=== PATIENT | female | born 1965 | race African-American/Black ===

== ENCOUNTER 2022-06-15 15:53 | Observation (INO) ==
[2022-06-15] MEDS ORDERED: Ondansetron 4 mg VIAL 2 MG/ML 2 ml VIAL ONE (16:06)
[2022-06-15] MEDS ORDERED: Ondansetron 4 mg VIAL 2 MG/ML 2 ml VIAL IV ONE (16:07)
[2022-06-15 16:13] LABS: Hematocrit 45 % (35-47); Hemoglobin 14.9 g/dL (12.0-16.0); Mean Corpuscular HGB Conc 33 g/dL (31-36); Mean Corpuscular Hemoglobin 29 pg (27-31); Mean Corpuscular Volume 87 fL (80-97); Mean Platelet Volume 8.3 fL (7.4-10.4); Platelet Count 326 10^3/uL (150-450); Red Blood Count 5.16 10^6 /uL (3.70-4.87); Red Cell Distribution Width 16 % (10-15); White Blood Count 10.2 10^3/uL (3.5-10.8)
[2022-06-15] MEDS ORDERED: Iodixanol (CONTRAST) 320 MG/ML 100 ML SDV IV ONE (16:17)
[2022-06-15 16:28] LABS: ABS Eosinophils 0.2 10^3/ul (0-0.6); ABS Monocytes 0.7 10^3/ul (0-0.8); ABS Neutrophils 5.2 10^3/ul (1.5-7.7); Eosinophil % 2.3 %; Lymphocyte % 39.6 %; Nucleated Red Blood Cells % 0.1
[2022-06-15 16:37] LABS: INR 0.97 (0.88-1.18)
[2022-06-15 16:38] LABS: Activated Partial Thrombo Time 35.9 seconds (26.0-38.0)
[2022-06-15 16:47] LABS: Albumin 4.3 g/dL (3.2-5.2); Albumin/Globulin Ratio 1.3 (1-3); Calcium 9.8 mg/dL (8.6-10.3); Creatinine, Serum 0.83 mg/dL (0.51-0.95); Globulin 3.2 g/dL (2-4); Potassium 3.8 mmol/L (3.5-5.0); Total Bilirubin 0.3 mg/dL (0.2-1.0); Total Protein 7.5 g/dL (6.4-8.9); eGFR CKD-EPI 81.7 (>60)
[2022-06-15 19:15] LABS: Urine Bacteria Absent (Absent); Urine Red Blood Cell Trace(0-2/hpf) (Absent); Urine Squamous Epithelial Cell Present (Absent); Urine White Blood Cell Trace(0-5/hpf) (Absent)
[2022-06-15 19:23] LABS: Urine Appearance Clear; Urine Bilirubin Negative (Negative); Urine Blood Negative (Negative); Urine Color Straw; Urine Glucose Negative (Negative); Urine Ketones Negative (Negative); Urine Nitrite Negative (Negative); Urine Protein Negative (Negative); Urine Specific Gravity 1.035 (1.002-1.030); Urine Urobilinogen Negative (Negative)
[2022-06-15] MEDS ORDERED: Enoxaparin 40 MG/0.4 ML SYR SUBCUT SCH (22:00)
[2022-06-16 19:59] VITALS: BP 130/78
== END 2022-06-16 19:59 | disposition home or self-care (01) ==
LOC: ED 15:53 → EDHOLD 15:53 → SUATTDRO 20:55 → EDHOLD 06-16 19:58
PROVIDERS: ADMIT Hospitalist; ATTEND Internal Medicine